=== PATIENT | male | born 1945 | race Hispanic/Latino ===

== ENCOUNTER → 2018-08-31 | Outpatient (CLI) | payer OTHER ==
[~2018-08-31] MED LIST: ASPI-1197 PO; ATOR40TA69 PO; EZET10 PO; FINA5TAB41 PO; LISI-617 PO; TAMS0.4C32 PO
== END | disposition home or self-care (01) ==
LOC: SHCH 12:58
PROVIDERS: ATTEND Internal Medicine Cardiovascular Disease
DX: I35.0 Nonrheumatic aortic (valve) stenosis (principal); I51.7 Cardiomegaly
CPT/HCPCS: 93306

== ENCOUNTER → 2018-09-29 | Outpatient (CLI) | payer OTHER ==
[~2018-09-29] VITALS: Ht 175.3 cm; Wt 90.7 kg
[~2018-09-29] MED LIST changes: +REGADENOSON 0.4 MG/5 ML PF SYG IVP SCH
== END | disposition home or self-care (01) ==
LOC: SHCH 08:36
PROVIDERS: ATTEND Internal Medicine Cardiovascular Disease
DX: R07.9 Chest pain, unspecified (principal)
CPT/HCPCS: 78452; 93017; 96374; A9500 ×2; J2785

== ENCOUNTER → 2020-03-12 | Outpatient (CLI) | payer OTHER ==
[~2020-03-12] MED LIST changes: -EZET10 PO; +EZET10TA13 PO; -REGADENOSON 0.4 MG/5 ML PF SYG IVP SCH
== END | disposition home or self-care (01) ==
LOC: SHCH 14:30
PROVIDERS: ATTEND Internal Medicine Cardiovascular Disease
DX: I35.0 Nonrheumatic aortic (valve) stenosis (principal); I25.10 Atherosclerotic heart disease of native coronary artery without angina pectoris
CPT/HCPCS: 93306

== ENCOUNTER → 2023-04-21 | Outpatient (CLI) | payer OTHER ==
[~2023-04-21] MED LIST changes: -EZET10TA13 PO; +EZET10TA81 PO; +IOHEXOL-350 50ML VIAL IV ONE; -LISI-617 PO; +LISI5TAB21 PO
== END | disposition home or self-care (01) ==
LOC: RAH 09:50
PROVIDERS: ATTEND Internal Medicine
DX: R90.82 White matter disease, unspecified (principal); R41.3 Other amnesia
CPT/HCPCS: 70470; Q9967

== ENCOUNTER → 2024-11-21 | Outpatient (CLI) | payer OTHER ==
[~2024-11-21] MED LIST changes: -IOHEXOL-350 50ML VIAL IV ONE
--- NOTE | 2024-11-22 08:10 | HMCIMG ---
EXAMINATION: ULTRASOUND OF THE ABDOMEN WITH COLOR DOPPLER. CLINICAL HISTORY: Abdomen distension. COMPARISON: None. TECHNIQUE: Real-time grayscale ultrasound images of the abdomen. In addition, color Doppler is medically necessary to perform in order to evaluate vascularity and blood flow. FINDINGS: Liver: Normal in caliber, the right hepatic lobe measures 15.0 cm in the craniocaudal dimension. There is increased echogenicity of the hepatic parenchyma. There is no focal hepatic abnormality or intrahepatic biliary ductal dilatation. There is normal spectral Doppler of the main portal vein. Gallbladder: Within normal limits with normal wall thickness (0.29 cm). No hyperemia or pericholecystic free fluid. There is no cholelithiasis. Common bile duct is normal in caliber, measuring 0.30 cm. Spleen is normal in caliber and measures 10.4 x 2.3 x 2.3 cm in craniocaudal, AP and transverse dimensions respectively. No focal lesions. Pancreas: Head and body appear normal in caliber and echotexture. No calcification or dilated pancreatic duct. Tail is obscured by overlying bowel gas. The kidneys are normal in caliber, the right kidney measures 10.0 x 5.0 x 4.0 cm and the left kidney measures 9.5 x 4.0 x 4.2 cm in craniocaudal, AP, and transverse dimensions respectively. There is normal renal cortical thickness, and cortical echogenicity. There is no renal calculus or hydronephrosis. Visualized aspects of the aorta and inferior vena cava are unremarkable. IMPRESSION: Hepatic steatosis. /[place]
== END | disposition home or self-care (01) ==
LOC: RAH 08:11
PROVIDERS: ATTEND Internal Medicine
DX: K76.0 Fatty (change of) liver, not elsewhere classified (principal); R14.0 Abdominal distension (gaseous)
CPT/HCPCS: 76700

== ENCOUNTER → 2025-03-01 | Outpatient (CLI) | payer OTHER ==
--- NOTE | 2025-03-04 09:48 | HMCIMG ---
US ABDOMINAL COMPLETE REASON: Generalized abdominal pain previous ultrasound from 11/21/2024 is available. COMPARISON: None FINDINGS: There is grade 1 hepatic steatosis of the liver. The liver length is 13.6 cm.. There are no focal mass lesions. The liver is not enlarged.The gallbladder has sludge. The gallbladder wall thickness is 0.3 cm. The common bile duct measures 0.3 cm.. Kidneys appear normal in size and appearance. Right kidney measures 9.5 x 4.9 x 5.6 cm. The left kidney has a measures 10.9 x 5.5 x 5.8 cm. There is a nonobstructing calculus in the lower pole the left kidney measuring 0.3 x 0.4 cm. There is no evidence of mass, stone or hydronephrosis. Spleen and common duct appear normal. Aorta and inferior vena cava appear normal. The spleen measures 10.5 cm. The pancreas appears normal as well. The study is limited due to overlying bowel gas. IMPRESSION: Nonobstructing calculus in the lower pole of the right kidney Sludge in the gallbladder
== END | disposition home or self-care (01) ==
LOC: RAH 08:38
PROVIDERS: ATTEND Internal Medicine
DX: N20.0 Calculus of kidney (principal); D72.828 Other elevated white blood cell count; R10.84 Generalized abdominal pain; K82.8 Other specified diseases of gallbladder
CPT/HCPCS: 76700